=== PATIENT | female | born 2000 | race Caucasian/White ===

== ENCOUNTER 2023-07-10 11:49 | Outpatient (REF) | payer MEDICAID, SELFPAY ==
[2023-07-10 12:50] LABS: Estimated Average Glucose 108 mg/dL; Hemoglobin A1c % 5.4 % (<6.0)
[2023-07-10 13:36] LABS: Cholesterol 386 mg/dL (<200); HDL Cholesterol 29 mg/dL (>40); Triglycerides 1927 mg/dL (<150)
== END 2023-07-10 11:50 | disposition home or self-care (01) ==
LOC: HO.LAB 11:49
PROVIDERS: Visit Provider Registered Nurse
DX: F31.81 Bipolar II disorder (principal); F41.1 Generalized anxiety disorder; Z79.899 Other long term (current) drug therapy
CPT/HCPCS: 36415; 80061; 83036